=== PATIENT | male | born 1945 | race Caucasian/White ===

== ENCOUNTER 2019-07-11 17:12 | Emergency (ER) | payer MEDICARE, OTHER ==
--- NOTE | 2019-07-11 17:44 | ED Physician Documentation ---
PD HPI DYSPNEA - Stated complaint Stated Complaint: DIFFICULTY BREATHING - CHEMO PT - XRAY - Chief complaint Chief Complaint: Resp - History obtained from History obtained from: Patient - History of Present Illness Pain level now: 0 Improved by: No: O2 Worsened by: Coughing Associated symptoms: Fever (99+), Cough. No: Hemoptysis, Chest pain / discomfort, Palpitations, Bilateral edema Recently seen: Clinic - Additional information Additional information: This is a 73-year-old man who has an aggressive type of bladder cancer and received a heavy dose of chemotherapy on 02 July who presents today with complaints of an "aggressive cough" that so vigorous is hurting in the back of his throat and in his lower back. He just brings up clear phlegm which he swallows. He does feel short of breath with exertion but denies any chest pain. He is not felt dizzy. He is been a little nauseous but he has medications at home for that he has not been vomiting. He had a slight runny nose. He had his flu shot a week before receiving the chemotherapy. Denies any dysuria or blood in the urine. 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 His oncologist had called me prior to his arrival requesting a CBC and chest x-ray. Review of Systems Constitutional: reports: Fever (99+) Ears: denies: Ear pain Nose: reports: Rhinorrhea / runny nose. denies: Congestion Throat: denies: Sore throat Cardiac: denies: Chest pain / pressure, Palpitations, Pedal edema Respiratory: reports: Dyspnea, Cough. denies: Hemoptysis, Wheezing GI: reports: Nausea. denies: Vomiting : denies: Dysuria, Hematuria Musculoskeletal: reports: Back pain Neurologic: denies: Generalized weakness, Syncope Immunocompromised: reports: Immunocompromised PD PAST MEDICAL HISTORY - Present Medications Home Medications: Ambulatory Orders Medication Instructions Recorded Confirmed Aspirin 81 mg PO DAILY 07/11/19 07/11/19 Cholecalciferol (Vitamin D3) 1,000 unit PO DAILY 07/11/19 07/11/19 [Vitamin D3] Lisinopril 20 mg PO DAILY 07/11/19 07/11/19 Loratadine 10 mg PO DAILY 07/11/19 07/11/19 Simvastatin 20 mg PO DAILY 07/11/19 07/11/19 Tamsulosin HCl [Flomax] 0.4 mg PO DAILY 07/11/19 07/11/19 amLODIPine [Norvasc] 5 mg PO DAILY 07/11/19 07/11/19 guaiFENesin/CODEINE [Robitussin AC] 5 - 10 ml PO Q8H #90 ml 07/11/19 metFORMIN [Glucophage] 500 mg PO ONCE 07/11/19 07/11/19 - Allergies Allergies/Adverse Reactions: Allergies Allergy/AdvReac Type Severity Reaction Status Date / Time bacitracin AdvReac Rash Verified 07/11/19 17:19 [From Neosporin ([id number])] neomycin AdvReac Rash Verified 07/11/19 17:19 [From Neosporin ([id number])] polymyxin B AdvReac Rash Verified 07/11/19 17:19 [From Neosporin ([id number])] PD ED PE NORMAL - Vitals Vital signs reviewed: Yes - General General: Alert and oriented X 3, No acute distress, Well developed/nourished - HEENT HEENT: Atraumatic, PERRL, EOMI, Moist mucous membranes, Pharynx benign - Neck Neck: Supple, no meningeal sign, No adenopathy - Cardiac Cardiac: RRR, No murmur, Strong equal pulses - Respiratory Respiratory: No respiratory distress, Clear bilaterally - Abdomen Abdomen: Normal bowel sounds - Back Back: No CVA TTP - Derm Derm: Normal color, Warm and dry, No rash - Extremities Extremities: No deformity, No edema - Neuro Neuro: Alert and oriented X 3, 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, No motor deficit, No sensory deficit, Normal speech - Psych Psych: Normal mood, Normal affect Results - Vitals Vitals: Oxygen O2 Source Room air - Labs Labs: Laboratory Tests 07/11/19 18:20 WBC 4.6 L RBC 3.82 L Hgb 12.5 L Hct 38.0 L MCV 99.5 H MCH 32.7 H MCHC 32.9 RDW 11.9 L Plt Count 116 L MPV 10.8 Neut # (Auto) Not Reportable Lymph # (Auto) Not Reportable [place] # (Auto) Not Reportable Eos # (Auto) Not Reportable Baso # (Auto) Not Reportable Absolute Nucleated RBC Not Reportable Total Counted 100 Band Neuts % (Manual) 16 H Abnorm Lymph % (Manual) 0 Nucleated RBC % Not Reportable Neutrophils # (Manual) 2.2 Lymphocytes # (Manual) 1.7 Monocytes # (Manual) 0.6 Eosinophils # (Manual) 0.1 Basophils # (Manual) 0.0 Differential Comment MANUAL DIFFERENTIAL WBC Morphology 2+ TOXIC GRANULATION Platelet Estimate DECREASED (<130,000) Platelet Morphology NORMAL APPEARANCE RBC Morph Micro Appear NORMAL APPEARANCE - Rads (name of study) CXR Radiology: EMP read contemporaneously, See rad report (Neg acute) PD MEDICAL DECISION MAKING - ED course Complexity details: reviewed results, re-evaluated patient, d/w patient, d/w family ED course: The chest x-ray is clear. His white blood cell count was up to 4.6. The differential is still pending and I discussed with him he preferred to be discharged and have that followed up through his oncologist. He was pleased with white blood cell count was higher. He was given a dose of Phenergan with codeine and will be given a prescription for that. He can contact his o ncologist for follow-up tomorrow. Departure - Departure Disposition: 01 Home, Self Care Clinical Impression: Cough Condition: Good Instructions: ED Dyspnea Shortness of Breath Follow-Up: ALLAN URIOSTEGUI MD [Primary Care Provider] - Prescriptions: guaiFENesin/CODEINE [Robitussin AC] 5 - 10 ml PO Q8H #90 ml Comments: May take the codeine cough medicine if needed for coughing. Do not drive or operate machinery if you take that. Follow-up with Dr. Uriostegui tomorrow about your lab tests and the cough. There is no evidence of a lung infection at this time. Discharge Date/Time: 07/11/19 19:52
--- NOTE | 2019-07-11 18:23 | XRAY Report ---
Reason: cough Procedure Date: 07/11/2019 Accession Number: [id number] / [id number] Procedure: XR - Chest 2 View X-Ray CPT Code: 93459 FULL RESULT: EXAM: CHEST RADIOGRAPHY EXAM DATE: 07/11/2019 05:57 PM. CLINICAL HISTORY: Cough. COMPARISON: None. TECHNIQUE: 2 views. FINDINGS: Lungs/Pleura: No focal opacities evident. No pleural effusion. No pneumothorax. Normal volumes. Mediastinum: Heart and mediastinal contours are unremarkable. Other: Right sided [id number] is seen terminating in the mid to lower SVC region. IMPRESSION: No acute cardiopulmonary abnormality demonstrated. RADIA
[2019-07-11 18:43] LABS: BASOPHILS % (AUTO) 0.4 %; EOSINOPHILS % (AUTO) 2.6 %; HGB - HEMOGLOBIN 12.5 g/dL (14.0-18.0); LYMPHOCYTES % (AUTO) 28.9 %; MEAN CORPUSCULAR HEMOGLOBIN 32.7 pg (27.0-31.0); MEAN CORPUSCULAR HGB CONC 32.9 g/dL (32.0-36.0); MEAN CORPUSCULAR VOLUME 99.5 fL (80.0-94.0); MEAN PLATELET VOLUME 10.8 fL (7.4-11.4); MONOCYTES % (AUTO) 14.1 %; NEUTROPHILS % (AUTO) 49.7 %; PLT - PLATELET COUNT 116 10^3/uL (130-450); RED BLOOD COUNT 3.82 10^6/uL (4.70-6.10); RED CELL DISTRIBUTION WIDTH 11.9 % (12.0-15.0); WHITE BLOOD COUNT 4.6 x10^3/uL (4.8-10.8)
[2019-07-11 18:48] LABS: ABNORMAL LYMPHS % (MANUAL) 0 %
[2019-07-11] MEDS ORDERED: guaiFENesin/CODEINE 5 ML UDC PO STA (19:33)
[2019-07-11 19:44] LABS: BAND NEUTROPHILS % (MANUAL) 16 %; EOSINOPHILS # (MANUAL) 0.1 10^3/uL (0-0.7); LYMPHOCYTES # (MANUAL) 1.7 10^3/uL (1.5-3.5); LYMPHOCYTES % (MANUAL) 36 %; MONOCYTES # (MANUAL) 0.6 10^3/uL (0.0-1.0)
[2019-07-11 19:46] LABS: DIFFERENTIAL COMMENT MANUAL DIFFERENTIAL; PLATELET ESTIMATE, MANUAL DECREASED (<130,000) (NORMAL); PLATELET MORPHOLOGY NORMAL APPEARANCE (NORMAL); RBC MORPHOLOGY (MULTIPLE) NORMAL APPEARANCE (NORMAL)
[2019-07-11 19:50] VITALS: BP 138/80
== END 2019-07-11 19:52 | disposition home or self-care (01) ==
LOC: ED 17:12
DX: R05 Cough (principal)
CPT/HCPCS: 36415; 71046; 85025; 99283; 99284; A9270

== ENCOUNTER 2019-07-23 17:35 | Inpatient (IN) | payer MEDICARE, OTHER ==
[2019-07-23 18:53] LABS: BASOPHILS % (AUTO) 2.5 %; EOSINOPHILS % (AUTO) 1.3 %; HGB - HEMOGLOBIN 11.7 g/dL (14.0-18.0); LYMPHOCYTES % (AUTO) 79.7 %; MEAN CORPUSCULAR HGB CONC 33.2 g/dL (32.0-36.0); MEAN CORPUSCULAR VOLUME 96.2 fL (80.0-94.0); MEAN PLATELET VOLUME 9.8 fL (7.4-11.4); MONOCYTES % (AUTO) 10.1 %; NEUTROPHILS % (AUTO) 5.1 %; PLT - PLATELET COUNT 167 10^3/uL (130-450); RED BLOOD COUNT 3.66 10^6/uL (4.70-6.10); RED CELL DISTRIBUTION WIDTH 12.4 % (12.0-15.0)
[2019-07-23 19:00] LABS: WHITE BLOOD COUNT 0.8 x10^3/uL (4.8-10.8)
[2019-07-23 19:01] LABS: ABNORMAL LYMPHS % (MANUAL) 0 %; BAND NEUTROPHILS % (MANUAL) 0 %
[2019-07-23 19:02] LABS: ALBUMIN 3.6 g/dL (3.2-5.5); ALBUMIN/GLOBULIN RATIO 1.2 (1.0-2.2); BILIRUBIN,TOTAL 0.6 mg/dL (0.2-1.0); CALCIUM 8.9 mg/dL (8.5-10.3); TOTAL PROTEIN 6.6 g/dL (6.7-8.2)
[2019-07-23 19:24] LABS: LYMPHOCYTES # (MANUAL) 0.7 10^3/uL (1.5-3.5); LYMPHOCYTES % (MANUAL) 84 %; MONOCYTES # (MANUAL) 0.1 10^3/uL (0.0-1.0)
[2019-07-23 19:27] LABS: DIFFERENTIAL COMMENT MANUAL DIFFERENTIAL; PLATELET ESTIMATE, MANUAL NORMAL (130-450,000) (NORMAL); PLATELET MORPHOLOGY NORMAL APPEARANCE (NORMAL); RBC MORPHOLOGY (MULTIPLE) NORMAL APPEARANCE (NORMAL)
--- NOTE | 2019-07-23 19:43 | XRAY Report ---
Reason: cough Procedure Date: 07/23/2019 Accession Number: [id number] / [id number] Procedure: XR - Chest 2 View X-Ray CPT Code: 05106 Final Report FULL RESULT: EXAM: CHEST RADIOGRAPHY EXAM DATE: 07/23/2019 07:16 PM. CLINICAL HISTORY: Cough. COMPARISON: CHEST 2 VIEW 07/11/2019 5:54 PM. TECHNIQUE: 2 views. FINDINGS: Lungs/Pleura: Mild right lung base airspace opacity. Left lung clear. No pneumothorax or effusion. Mediastinum: Heart and mediastinal contours are unremarkable. Other: Stable right Port-A-Cath. IMPRESSION: Mild right lung base opacity, favor atelectasis but early pneumonia/aspiration not excluded in the proper clinical setting. RADIA
[2019-07-23 19:48] LABS: BILIRUBIN,URINE NEGATIVE (NEGATIVE); GLUCOSE, URINE (UA) NEGATIVE (NEGATIVE); KETONES,URINE (UA) NEGATIVE (NEGATIVE); LEUKOCYTE ESTERASE, URINE NEGATIVE (NEGATIVE); NITRITE,URINE NEGATIVE (NEGATIVE); OCCULT BLOOD,URINE NEGATIVE (NEGATIVE); PROTEIN,URINE TRACE mg/dL (NEGATIVE); UROBILINOGEN,URINE 0.2 (NORMAL) E.U./dL (NORMAL)
[2019-07-23 19:56] LABS: CLARITY,URINE CLEAR (CLEAR)
--- NOTE | 2019-07-23 20:03 | ED Physician Documentation ---
PD HPI URI - Stated complaint Stated Complaint: HIGH FEVER - CA PT - Chief complaint Chief Complaint: General - History obtained from History obtained from: Patient - History of Present Illness Timing - onset: How many days ago (2-3) Timing duration: Days Timing details: Abrupt onset, Still present. No: Gradual onset Associated symptoms: Fever (subjective last night and measured to 100.5 this morning. Feeling feverish fro 1-2 days.), Nasal congestion, Dry cough, Dyspnea. No: Chest pain, NVD, Bilateral edema Contributing factors: Sick contact (grandson with some URI symtpoms.), Immunocompromised (chemo 1 week ago for bladder cancer) Improves by: No: Rest Worsened by: Activity Similar symptoms before: Has not had sx before Recently seen: Clinic (chemo 1 week ago and 2 weeks prior to that, with fatigue from it.) Review of Systems Constitutional: reports: Fever, Myalgias, Fatigue Nose: reports: Congestion. denies: Rhinorrhea / runny nose Throat: denies: Sore throat Cardiac: denies: Chest pain / pressure, Palpitations, Calf pain Respiratory: reports: Dyspnea, Cough. denies: Wheezing GI: reports: Nausea, Vomiting. denies: Diarrhea, Hematemesis : denies: Dysuria, Frequency Musculoskeletal: denies: Neck pain, Back pain Neurologic: reports: Generalized weakness. denies: Near syncope, Confused, Altered mental status, Headache Psychiatric: denies: Depressed Immunocompromised: reports: Immunocompromised, Chemotherapy PD PAST MEDICAL HISTORY - Past Medical History Cardiovascular: Hypertension, High cholesterol Endocrine/Autoimmune: Type 2 diabetes : Benign prostate hypertrophy - Past Surgical History Past Surgical History: Yes - Present Medications Home Medications: Ambulatory Orders Medication Instructions Recorded Confirmed Aspirin 81 mg PO DAILY 07/11/19 07/11/19 Cholecalciferol (Vitamin D3) 1,000 unit PO DAILY 07/11/19 07/11/19 [Vitamin D3] Lisinopril 20 mg PO DAILY 07/11/19 07/11/19 Loratadine 10 mg PO DAILY 07/11/19 07/11/19 Simvastatin 20 mg PO DAILY 07/11/19 07/11/19 Tamsulosin HCl [Flomax] 0.4 mg PO DAILY 07/11/19 07/11/19 amLODIPine [Norvasc] 5 mg PO DAILY 07/11/19 07/11/19 guaiFENesin/CODEINE [Robitussin AC] 5 - 10 ml PO Q8H #90 ml 07/11/19 metFORMIN [Glucophage] 500 mg PO ONCE 07/11/19 07/11/19 - Allergies Allergies/Adverse Reactions: Allergies Allergy/AdvReac Type Severity Reaction Status Date / Time bacitracin AdvReac Rash Verified 07/23/19 17:50 [From Neosporin ([id number])] neomycin AdvReac Rash Verified 07/23/19 17:50 [From Neosporin ([id number])] polymyxin B AdvReac Rash Verified 07/23/19 17:50 [From Neosporin ([id number])] - Social History Does the pt smoke?: No Smoking Status: Never smoker PD ED PE NORMAL - Vitals Vital signs reviewed: Yes - General General: Alert and oriented X 3, Well developed/nourished - HEENT HEENT: Pharynx benign - Neck Neck: Supple, no meningeal sign, No adenopathy, No JVD - Cardiac Cardiac: RRR, No murmur - Respiratory Respiratory: No: Clear bilaterally (congested hilar area and right lower lung field. Slight wheezing. ) - Abdomen Abdomen: Soft, Non tender - Back Back: No CVA TTP - Derm Derm: Warm and dry. No: Normal color (pale) - Extremities Extremities: Normal ROM s pain, No edema, No calf tenderness / cord - Neuro Neuro: Alert and oriented X 3, No motor deficit, Normal speech Results - Vitals Vitals: Vital Signs - 24 hr 07/23/19 07/23/19 07/23/19 17:47 19:51 20:48 Temperature 37.0 C 37.3 C Heart Rate 90 96 100 Respiratory 18 17 15 Rate Blood Pressure 156/83 H 168/91 H 145/83 H O2 Saturation 97 98 98 07/23/19 20:55 Temperature Heart Rate 96 Respiratory 18 Rate Blood Pressure O2 Saturation Oxygen O2 Source Room air - Labs Labs: Laboratory Tests 07/23/19 07/23/19 07/23/19 18:40 18:40 18:40 WBC 0.8 L* RBC 3.66 L Hgb 11.7 L Hct 35.2 L MCV 96.2 H MCH 32.0 H MCHC 33.2 RDW 12.4 Plt Count 167 MPV 9.8 Neut # (Auto) Not Reportable Lymph # (Auto) Not Reportable [place] # (Auto) Not Reportable Eos # (Auto) Not Reportable Baso # (Auto) Not Reportable Absolute Nucleated RBC Not Reportable Total Counted 50 Band Neuts % (Manual) 0 Reactive Lymphs % (Man) 2 Abnorm Lymph % (Manual) 0 Nucleated RBC % Not Reportable Neutrophils # (Manual) 0.0 L* Lymphocytes # (Manual) 0.7 L Monocytes # (Manual) 0.1 Eosinophils # (Manual) 0.0 Basophils # (Manual) 0.0 Differential Comment MANUAL DIFFERENTIAL Manual Slide Review Indicated Platelet Estimate NORMAL (130-450,000) Platelet Morphology NORMAL APPEARANCE RBC Morph Micro Appear NORMAL APPEARANCE Sodium 137 Potassium 4.1 Chloride 102 Carbon Dioxide 26 Anion Gap 9.0 BUN 17 Creatinine 1.0 Estimated GFR (MDRD) 73 L Glucose 116 H Lactic Acid 0.9 Calcium 8.9 Magnesium Total Bilirubin 0.6 AST 25 ALT 49 Alkaline Phosphatase 74 Total Protein 6.6 L Albumin 3.6 Globulin 3.0 Albumin/Globulin Ratio 1.2 Lipase 21 L Urine Color Urine Clarity Urine pH Ur Specific [place] Urine Protein Urine Glucose (UA) Urine Ketones Urine Occult Blood Urine Nitrite Urine Bilirubin Urine Urobilinogen Ur Leukocyte Esterase Ur Microscopic Review Urine Culture Comments Influenza A (Rapid) Influenza B (Rapid) 07/23/19 07/23/19 07/23/19 18:40 19:43 19:49 WBC RBC Hgb Hct MCV MCH MCHC RDW Plt Count MPV Neut # (Auto) Lymph # (Auto) [place] # (Auto) Eos # (Auto) Baso # (Auto) Absolute Nucleated RBC Total Counted Band Neuts % (Manual) Reactive Lymphs % (Man) Abnorm Lymph % (Manual) Nucleated RBC % Neutrophils # (Manual) Lymphocytes # (Manual) Monocytes # (Manual) Eosinophils # (Manual) Basophils # (Manual) Differential Comment Manual Slide Review Platelet Estimate Platelet Morphology RBC Morph Micro Appear Sodium Potassium Chloride Carbon Dioxide Anion Gap BUN Creatinine Estimated GFR (MDRD) Glucose Lactic Acid Calcium Magnesium 2.5 Total Bilirubin AST ALT Alkaline Phosphatase Total Protein Albumin Globulin Albumin/Globulin Ratio Lipase Urine Color YELLOW Urine Clarity CLEAR Urine pH 6.0 Ur Specific [place] 1.010 Urine Protein TRACE Urine Glucose (UA) NEGATIVE Urine Ketones NEGATIVE Urine Occult Blood NEGATIVE Urine Nitrite NEGATIVE Urine Bilirubin NEGATIVE Urine Urobilinogen 0.2 (NORMAL) Ur Leukocyte Esterase NEGATIVE Ur Microscopic Review NOT INDICATED Urine Culture Comments NOT INDICATED Influenza A (Rapid) Negative Influenza B (Rapid) Negative - Rads (name of study) chest xray Radiology: Prelim report reviewed (patchy right lower c/w atelectasis versus early infiltrate pneumonia), See rad report PD MEDICAL DECISION MAKING - ED course Complexity details: reviewed results, re-evaluated patient, considered differential (PNeumonia versus flu versus URI. In setting of post chemo with concern of low functioning immune system), d/w patient, d/w family, d/w residential sales consultant (Oncology salesperson surgical appliances, who suggested some granulocyte stimulating hormone therapy. As well as hospitalization and treatment for pneumonia. ) Departure - Departure Disposition: 66 [facility] DC/Xfer Clinical Impression: Chemotherapy induced neutropenia, Acute pneumonia Bladder cancer Qualifiers: Bladder location: unspecified site Qualified Code(s): C67.9 - Malignant neoplasm of bladder, unspecified Condition: Stable Record reviewed to determine appropriate education?: Yes Discharge Date/Time: 07/23/19 23:02
[2019-07-23] MEDS ORDERED: SODIUM CHLORIDE 0.9% 1,000 ML IV ONE (20:32)
[2019-07-23] MEDS ORDERED: ALBUTEROL NEB 2.5 MG/3 ML INH STA (20:32)
[2019-07-23] MEDS ORDERED: CEFEPIME 2 GM in SODIUM CHLORIDE 0.9% MINIBAG 100 ML IV STA (20:33)
[2019-07-23] MEDS ORDERED: AZITHROMYCIN INJ 500 MG in SODIUM CHLORIDE 0.9% 250 ML IV STA (20:33)
[2019-07-23] MEDS ORDERED: FILGRASTIM-SNDZ 480 MCG/0.8 ML SYRINGE SUBQ SCH (21:50)
[2019-07-23] MEDS ORDERED: ACETAMINOPHEN 325 MG TABLET PO PRN (21:56)
--- NOTE | 2019-07-23 22:21 | HISTORY & PHYSICAL EXAMINATION ---
Chief Complaint - Chief Complaint Chief Complaint: cough History of Present Illness - Admitted From Admitted From:: [facility] ED - History Obtained From Records Reviewed: yes History obtained from: patient - History of Present Illness HPI Comment/Other: Patient is a 73 y/o man with an aggressive bladder cancer diagnosed 3 years ago who presented to the ED with complain of cough which started yesterday. He had presented to the ED on 07/11/19 with similar complain. He received chemotherapy on 07/02/19 and again last week. Upon presentation he had a temperature of 100.5F. Work up in the ED included CBC which showed a WBC of 0.8 and a neutro erin count of 0.0. Chest xray was also concerning for possible infiltrates. As a result he was presented for admission At bedside patient was asleep but readily awoke to verbal stimuli. He has a very flat affect. He denied feeling dyspneic at the moment. Reports chest pain with coughing. He reported nausea but no vomiting. he denied abdominal pain. 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 liver cancer. brother: . lung cancer (smoked) Social History Notes: lives at home with family. He occassionally drinks a beer. He does not smoke or use illicit drugs - POLST Patient has POLST: No POLST Status: Limited Interventions (Resuscitation but no intubation) Meds/Allgy - Home Medications Home Medications: Ambulatory Orders Medication Instructions Recorded Confirmed Aspirin 81 mg PO DAILY 07/11/19 07/11/19 Cholecalciferol (Vitamin D3) 1,000 unit PO DAILY 07/11/19 07/11/19 [Vitamin D3] Lisinopril 20 mg PO DAILY 07/11/19 07/11/19 Loratadine 10 mg PO DAILY 07/11/19 07/11/19 Simvastatin 20 mg PO DAILY 07/11/19 07/11/19 Tamsulosin HCl [Flomax] 0.4 mg PO DAILY 07/11/19 07/11/19 amLODIPine [Norvasc] 5 mg PO DAILY 07/11/19 07/11/19 guaiFENesin/CODEINE [Robitussin AC] 5 - 10 ml PO Q8H #90 ml 07/11/19 metFORMIN [Glucophage] 500 mg PO ONCE 07/11/19 07/11/19 - Allergies Allergies/Adverse Reactions: Allergies Allergy/AdvReac Type Severity Reaction Status Date / Time bacitracin AdvReac Rash Verified 07/23/19 17:50 [From Neosporin ([id number])] neomycin AdvReac Rash Verified 07/23/19 17:50 [From Neosporin ([id number])] polymyxin B AdvReac Rash Verified 07/23/19 17:50 [From Neosporin ([id number])] Review of Systems - Constitutional Constitutional: reports: Fatigue, Fever, Weakness, Other (hair loss/ thinning) - Eyes Eyes: denies: Pain, Dipolpia - Ears, Nose & Throat Ears, Nose & Throat: denies: Ear pain, Sore throat - Cardiovascular Cariovascular: reports: Exertional dyspnea. denies: Chest pain, Decr. exercise tolerance - Respiratory Respiratory: reports: Cough. denies: Sputum production, Wheezing - Gastrointestinal Gastrointestinal: reports: Nausea. denies: Abdominal pain, Abdominal distention, Constipation, Diarrhea, Vomiting, Coffee grounds emesis, Reflux/ heartburn - Genitourinary Genitourinary: denies: Dysuria, Frequency, Urgency, Hematuria - Musculoskeletal Musculoskeletal: denies: Muscle pain, Back pain, Muscle aches, Stiffness - Integumentary Integumentary: denies: Rash, Pruritis, Lesions - Neurological Neurological: denies: General weakness, Focal weakness, Headache - Psychiatric Psychiatric: denies: Depression, Anxiety - Endocrine Endocrine: denies: Polyuria, Polydypsia - Hematologic/Lymphatic Hematologic/Lymphatic: denies: Anemia, Bruising Prior Level of Functionality: Patient is independent of activities of daily living Exam - Vital Signs Vital Signs: Vital Signs x48h Temp Pulse Resp BP Pulse Ox 07/23/19 21:56 36.8 C 102 H 16 153/78 H 95 07/23/19 20:55 96 18 07/23/19 20:48 100 15 145/83 H 98 07/23/19 19:51 37.3 C 96 17 168/91 H 98 07/23/19 17:47 37.0 C 90 18 156/83 H 97 - Physical Exam General Appearance: positive: Alert, Moderate distress Eyes Bilateral: positive: Normal inspection, PERRL, EOMI ENT: positive: ENT inspection nml, Dry mucous membranes Neck: positive: Nml inspection, No JVD, Trachea midline Respiratory: positive: Chest non-tender, Rhonchi (greater on right side), Other (coarse breath sounds.). negative: No respiratory distress, Breath sounds nml Cardiovascular: positive: Tachycardia Abdomen: positive: Non-tender, No organomegaly, Nml bowel sounds, No distention. negative: Guarding, Rebound Back: positive: Nml inspection Skin: positive: Color nml, No rash, Warm Extremities: positive: Non-tender, Nml appearance, No pedal edema Neurologic/Psychiatric: positive: Oriented x3, Other (flat affect) Conclusion/Plan - Problem List (1) Chemotherapy induced neutropenia Conclusion/Plan: The oncologist contract engineer for his oncologist team was contact Dr Bill ([phone]) He recommended starting patient on filgrastim 480mcg subq daily. This has been started Patient can be discharged home on oral antibiotics after neutrophil count is greater than 1500 Patient currently on cefepime and azithromycin. (2) Acute pneumonia Conclusion/Plan: Patient on cefepime and azithromycin Blood cultures pending (3) Bladder cancer Conclusion/Plan: On chemotherapy. Patient will follow up with his oncologist Qualifiers: Bladder location: unspecified site Qualified Code(s): C67.9 - Malignant neoplasm of bladder, unspecified (4) Hypertension Conclusion/Plan: Lisinopril and amlodipine will be resumed after they have been verified (5) Diabetes mellitus Conclusion/Plan: Will hold metformin SSI, Accuchecks Qualifiers: Diabetes mellitus type: type 2 (6) Hyperlipidemia Conclusion/Plan: On simvastatin Will converted to formulary equivalent once verified - Lab Results Fish Bones: 07/23/19 18:40 07/23/19 18:40 Core Measures - Anticipated LOS I expect patient to be DC'd or transferred within 96 hours.: Yes - DVT/VTE - Prophylaxis VTE/DVT Device ordered at admit?: Yes
[2019-07-24] MEDS: SODIUM CHLORIDE FLUSH 0.9% 10 ML SYRINGE IVP SCH ×3 (00:43→17:57)
[2019-07-24] MEDS: SODIUM CHLORIDE 0.9% 1,000 ML IV SCH ×3 (00:43→21:20)
[2019-07-24] MEDS: CEFEPIME 2 GM in SODIUM CHLORIDE 0.9% MINIBAG 100 ML IV SCH ×3 (04:41→21:20)
[2019-07-24] MEDS: BENZOCAINE/MENTHOL LOZENGE MM PRN ×2 (06:25→21:18)
[2019-07-24] MEDS: PANTOPRAZOLE 40 MG VIAL IVP SCH (06:26)
[2019-07-24] MEDS: SODIUM CHLORIDE FLUSH 0.9% 10 ML SYRINGE IVP PRN (06:26)
[2019-07-24 06:50] LABS: BASOPHILS % (AUTO) 3.2 %; EOSINOPHILS % (AUTO) 1.6 %; HGB - HEMOGLOBIN 10.3 g/dL (14.0-18.0); LYMPHOCYTES % (AUTO) 71.4 %; MEAN CORPUSCULAR HEMOGLOBIN 32.6 pg (27.0-31.0); MEAN CORPUSCULAR HGB CONC 33.2 g/dL (32.0-36.0); MEAN CORPUSCULAR VOLUME 98.1 fL (80.0-94.0); MEAN PLATELET VOLUME 10.1 fL (7.4-11.4); MONOCYTES % (AUTO) 14.3 %; NEUTROPHILS % (AUTO) 9.5 %; PLT - PLATELET COUNT 149 10^3/uL (130-450); RED BLOOD COUNT 3.16 10^6/uL (4.70-6.10); RED CELL DISTRIBUTION WIDTH 12.4 % (12.0-15.0)
[2019-07-24 06:55] LABS: CALCIUM 7.9 mg/dL (8.5-10.3); CREATININE 1.1 mg/dL (0.6-1.2)
[2019-07-24 06:56] LABS: WHITE BLOOD COUNT 0.6 x10^3/uL (4.8-10.8)
[2019-07-24 06:57] LABS: ABNORMAL LYMPHS % (MANUAL) 0 %; BAND NEUTROPHILS % (MANUAL) 0 %
[2019-07-24 07:26] LABS: BASOPHILS % (MANUAL) 4 %; LYMPHOCYTES # (MANUAL) 0.5 10^3/uL (1.5-3.5); LYMPHOCYTES % (MANUAL) 79 %; MONOCYTES # (MANUAL) 0.1 10^3/uL (0.0-1.0)
[2019-07-24 07:27] LABS: DIFFERENTIAL COMMENT MANUAL DIFFERENTIAL; PLATELET ESTIMATE, MANUAL NORMAL (130-450,000) (NORMAL); PLATELET MORPHOLOGY NORMAL APPEARANCE (NORMAL); RBC MORPHOLOGY (MULTIPLE) NORMAL APPEARANCE (NORMAL)
[2019-07-24] MEDS: INSULIN ASPART 300 UNIT/3 ML PEN SUBQ SCH ×4 (08:21→20:47)
[2019-07-24] MEDS: ONDANSETRON 4 MG/2 ML VIAL IVP PRN (08:30)
[2019-07-24] MEDS: FILGRASTIM-SNDZ 480 MCG/0.8 ML SYRINGE SUBQ SCH (08:55)
[2019-07-24 10:03] LABS: HB2 TOTAL 10.3 g/dL; HEMOGLOBIN A1C 0.52 g/dL; HEMOGLOBIN A1C % 6.8 % (4.6-6.2)
--- NOTE | 2019-07-24 12:51 | PROVIDER PROGRESS NOTE ---
Assessment/Plan - Problem List (1) Chemotherapy induced neutropenia Assessment/Plan: ANC still negligible Continue med recommended by Oncoloist Follow CBC daily (2) Chemotherapy-induced nausea and vomiting Assessment/Plan: He said he is "usually nauseated every day in the week between chemo weeks" (He got chemo all of last week). I will downgrade his diet from Regular solids to Full Liquid Will add Compazine to Zofran and stagger them. He was started on empiric ulcer prevention with Protonix (3) Acute pneumonia Assessment/Plan: Continue iv antibiotics Await culture results to adjust (4) Bladder cancer Qualifiers: Bladder location: unspecified site Qualified Code(s): C67.9 - Malignant neoplasm of bladder, unspecified Assessment/Plan: Chemo therapy is planned for 6 sessions every other week for a week at a time, p er the patient's girlfriend (5) DM type 2 (diabetes mellitus, type 2) Assessment/Plan: CC diet and accuchecks with ss Insulin planned while here (6) Hypertension Assessment/Plan: Will slowly resume home meds if BP rises (7) Hyperlipidemia Assessment/Plan: Simvastatin on hold while nauseated - Current Meds Current Meds: Current Medications Generic Name Dose Route Start Last Admin Trade Name Freq PRN Reason Stop Dose Admin Filgrastim 480 mcg 07/24/19 09:00 07/24/19 08:55 Zarxio SUBQ 480 mcg DAILY QUINTEN Administration Sodium Chloride 1,000 mls @ 100 mls/hr 07/23/19 22:00 07/24/19 10:36 Normal Saline 0.9% IV 100 mls/hr .Q10H QUINTEN Administration Cefepime HCl 2 gm/ Sodium 100 mls @ 200 mls/hr 07/24/19 05:00 07/24/19 05:15 Chloride IV Infused Q8H QUINTEN Infusion Insulin Aspart 1 - 5 unit 07/24/19 08:00 07/24/19 12:19 Novolog SUBQ Not Given 0800,1200,1700,2100 QUINTEN Protocol Ondansetron HCl 4 mg 07/23/19 21:56 07/24/19 08:30 Zofran Inj IVP 4 mg Q6HR PRN Administration Nausea / Vomiting Pantoprazole Sodium 40 mg 07/24/19 07:00 07/24/19 06:26 Protonix IVP 40 mg QDAC QUINTEN Administration Sodium Chloride 10 ml 07/24/19 01:00 07/24/19 10:35 Normal Saline Flush 0.9% IVP Not Given 0100,0900,1700 QUINTEN Sodium Chloride 20 ml 07/24/19 04:45 07/24/19 06:26 Normal Saline Flush 0.9% IVP 30 ml PRN PRN Administration After Blood Draw Throat Lozenges 1 lozenge 07/24/19 04:45 07/24/19 06:25 Cepacol MM 1 lozenge Q2HR PRN Administration Throat pain - Lab Result Fish Bone Diagrams: 07/27/19 06:12 07/27/19 06:12 - Additional Planning My Orders: My Active Orders 07/24/19 CUL, RESPIRATORY [RM] Urgent 07/24/19 12:48 Prochlorperazine Inj [Compazine Inj] 10 mg IVP Q4HR PRN 07/24/19 21:00 guaiFENesin [Mucinex] 600 mg PO BID 07/24/19 Dinner DIET [Full Liquid Diet] [DIET] Subjective - Subjective Patient Reports: Resting Comfortably, Nausea Nursing Reports: Cough Objective Vital Signs: Vital Signs - 24 hr 07/23/19 07/23/19 07/23/19 17:47 19:51 20:48 Temperature 37.0 C 37.3 C Heart Rate 90 96 100 Heart Rate [ Brachial] Respiratory 18 17 15 Rate Blood Pressure 156/83 H 168/91 H 145/83 H Blood Pressure [Left] Blood Pressure [Right Brachial artery] O2 Saturation 97 98 98 07/23/19 07/23/19 07/23/19 20:55 21:56 23:30 Temperature 36.8 C 36.7 C Heart Rate 96 102 H Heart Rate [ 98 Brachial] Respiratory 18 16 16 Rate Blood Pressure 153/78 H Blood Pressure [Left] Blood Pressure 150/88 H [Right Brachial artery] O2 Saturation 95 97 07/24/19 07/24/19 07/24/19 00:10 04:25 07:35 Temperature 36.7 C 37.2 C 37.3 C Heart Rate 98 Heart Rate [ 93 90 Brachial] Respiratory 16 18 24 Rate Blood Pressure Blood Pressure 159/86 H [Left] Blood Pressure 156/84 H [Right Brachial artery] O2 Saturation 97 94 94 Oxygen O2 Source Room air I&O (Last 24 Hrs): Intake and Output Totals x24h 07/22/19 07/23/19 07/24/19 23:59 23:59 23:59 Intake Total 1350 1436.667 Output Total 275 Balance 1350 1161.667 General: Alert, Oriented x3 HEENT: Mucous membr. moist/pink Neck: Supple Neuro: Non Focal Cardiovascular: Regular rate, No murmurs Respiratory: No respiratory distress, Other (L base diminised, no rales or wheezing) Abdomen: Normal bowel sounds, Soft Extremities: No edema - Results Results: Laboratory Results WBC 0.6 x10^3/uL (4.8-10.8) L* 07/24/19 06:15 RBC 3.16 10^6/uL (4.70-6.10) L 07/24/19 06:15 Hgb 10.3 g/dL (14.0-18.0) L 07/24/19 06:15 Hct 31.0 % (42.0-52.0) L 07/24/19 06:15 MCV 98.1 fL (80.0-94.0) H 07/24/19 06:15 MCH 32.6 pg (27.0-31.0) H 07/24/19 06:15 MCHC 33.2 g/dL (32.0-36.0) 07/24/19 06:15 RDW 12.4 % (12.0-15.0) 07/24/19 06:15 Plt Count 149 10^3/uL (130-450) 07/24/19 06:15 MPV 10.1 fL (7.4-11.4) 07/24/19 06:15 Neut # (Auto) Not Reportable 07/24/19 06:15 Lymph # (Auto) Not Reportable 07/24/19 06:15 [place] # (Auto) Not Reportable 07/24/19 06:15 Eos # (Auto) Not Reportable 07/24/19 06:15 Baso # (Auto) Not Reportable 07/24/19 06:15 Absolute Nucleated RBC Not Reportable 07/24/19 06:15 Total Counted 100 07/24/19 06:15 Band Neuts % (Manual) 0 % (0-10) 07/24/19 06:15 Reactive Lymphs % (Man) 2 % 07/23/19 18:40 Abnorm Lymph % (Manual) 0 % 07/24/19 06:15 Nucleated RBC % Not Reportable 07/24/19 06:15 Neutrophils # (Manual) 0.0 10^3/uL (1.5-6.6) L* 07/24/19 06:15 Lymphocytes # (Manual) 0.5 10^3/uL (1.5-3.5) L 07/24/19 06:15 Monocytes # (Manual) 0.1 10^3/uL (0.0-1.0) 07/24/19 06:15 Eosinophils # (Manual) 0.0 10^3/uL (0-0.7) 07/24/19 06:15 Basophils # (Manual) 0.0 10^3/uL (0-0.1) 07/24/19 06:15 Differential Comment MANUAL DIFFERENTIAL 07/24/19 06:15 Manual Slide Review Indicated 07/23/19 18:40 WBC Morphology NORMAL APPEARANCE (NORMAL) 07/24/19 06:15 Platelet Estimate NORMAL (130-450,000) (NORMAL) 07/24/19 06:15 Platelet Morphology NORMAL APPEARANCE (NORMAL) 07/24/19 06:15 RBC Morph Micro Appear NORMAL APPEARANCE (NORMAL) 07/24/19 06:15 Sodium 140 mmol/L (135-145) 07/24/19 06:15 Potassium 4.2 mmol/L (3.5-5.0) 07/24/19 06:15 Chloride 108 mmol/L (101-111) 07/24/19 06:15 Carbon Dioxide 26 mmol/L (21-32) 07/24/19 06:15 Anion Gap 6.0 (6-13) 07/24/19 06:15 BUN 14 mg/dL (6-20) 07/24/19 06:15 Creatinine 1.1 mg/dL (0.6-1.2) 07/24/19 06:15 Estimated GFR (MDRD) 65 (>89) L 07/24/19 06:15 Glucose 106 mg/dL (70-100) H 07/24/19 06:15 POC Whole Bld Glucose 119 mg/dL (70 - 100) H 07/24/19 11:29 Glycated Hemoglobin 6.8 % (4.6-6.2) H 07/24/19 06:15 Estim Average Glucose 148 (70-100) H 07/24/19 06:15 Lactic Acid 0.9 mmol/L (0.5-2.2) 07/23/19 18:40 Calcium 7.9 mg/dL (8.5-10.3) L 07/24/19 06:15 Magnesium 2.5 mg/dL (1.7-2.8) 07/23/19 18:40 Total Bilirubin 0.6 mg/dL (0.2-1.0) 07/23/19 18:40 AST 25 IU/L (10-42) 07/23/19 18:40 ALT 49 IU/L (10-60) 07/23/19 18:40 Alkaline Phosphatase 74 IU/L (42-121) 07/23/19 18:40 Total Protein 6.6 g/dL (6.7-8.2) L 07/23/19 18:40 Albumin 3.6 g/dL (3.2-5.5) 07/23/19 18:40 Globulin 3.0 g/dL (2.1-4.2) 07/23/19 18:40 Albumin/Globulin Ratio 1.2 (1.0-2.2) 07/23/19 18:40 Lipase 21 U/L (22-51) L 07/23/19 18:40 Urine Color YELLOW 07/23/19 19:43 Urine Clarity CLEAR (CLEAR) 07/23/19 19:43 Urine pH 6.0 PH (5.0-7.5) 07/23/19 19:43 Ur Specific [place] 1.010 (1.002-1.030) 07/23/19 19:43 Urine Protein TRACE mg/dL (NEGATIVE) 07/23/19 19:43 Urine Glucose (UA) NEGATIVE mg/dL (NEGATIVE) 07/23/19 19:43 Urine Ketones NEGATIVE mg/dL (NEGATIVE) 07/23/19 19:43 Urine Occult Blood NEGATIVE (NEGATIVE) 07/23/19 19:43 Urine Nitrite NEGATIVE (NEGATIVE) 07/23/19 19:43 Urine Bilirubin NEGATIVE (NEGATIVE) 07/23/19 19:43 Urine Urobilinogen 0.2 (NORMAL) E.U./dL (NORMAL) 07/23/19 19:43 Ur Leukocyte Esterase NEGATIVE (NEGATIVE) 07/23/19 19:43 Ur Microscopic Review NOT INDICATED 07/23/19 19:43 Urine Culture Comments NOT INDICATED 07/23/19 19:43 Nasal Screen MRSA (PCR) NEGATIVE (NEGATIVE) 07/24/19 04:40 Influenza A (Rapid) Negative (Negative) 07/23/19 19:49 Influenza B (Rapid) Negative (Negative) 07/23/19 19:49
[2019-07-24] MEDS: PROCHLORPERAZINE 10 MG/2 ML VIAL IVP PRN (13:40)
[2019-07-24 20:38] LABS: BILIRUBIN,URINE NEGATIVE (NEGATIVE); GLUCOSE, URINE (UA) NEGATIVE (NEGATIVE); KETONES,URINE (UA) NEGATIVE (NEGATIVE); LEUKOCYTE ESTERASE, URINE NEGATIVE (NEGATIVE); NITRITE,URINE NEGATIVE (NEGATIVE); OCCULT BLOOD,URINE NEGATIVE (NEGATIVE); PROTEIN,URINE NEGATIVE (NEGATIVE); UROBILINOGEN,URINE 0.2 (NORMAL) E.U./dL (NORMAL)
[2019-07-24 20:46] LABS: BACTERIA,URINE None Seen /HPF (None Seen); CLARITY,URINE CLEAR (CLEAR); RBC,URINE None Seen /HPF (0-5); SQUAMOUS EPITHELIAL CELL,UR NONE SEEN (<= Few)
[2019-07-24] MEDS: guaiFENesin 600 MG TABLET PO SCH (21:18)
[2019-07-24] MEDS: AZITHROMYCIN 250 MG TABLET PO SCH (21:18)
[2019-07-24] MEDS: ATORVASTATIN 40 MG TABLET PO SCH (21:19)
[2019-07-24] MEDS: oxyCODONE 5 MG TABLET PO PRN (21:55)
[2019-07-25] MEDS: oxyCODONE 5 MG TABLET PO PRN (02:17)
[2019-07-25] MEDS: SODIUM CHLORIDE FLUSH 0.9% 10 ML SYRINGE IVP SCH ×3 (02:18→17:58)
[2019-07-25] MEDS: CEFEPIME 2 GM in SODIUM CHLORIDE 0.9% MINIBAG 100 ML IV SCH ×3 (05:12→21:46)
[2019-07-25] MEDS: SODIUM CHLORIDE FLUSH 0.9% 10 ML SYRINGE IVP PRN ×3 (05:30→10:38)
[2019-07-25 06:18] LABS: BASOPHILS % (AUTO) 2.3 %; EOSINOPHILS % (AUTO) 0.5 %; HGB - HEMOGLOBIN 11.4 g/dL (14.0-18.0); MEAN CORPUSCULAR HEMOGLOBIN 32.4 pg (27.0-31.0); MEAN CORPUSCULAR HGB CONC 33.6 g/dL (32.0-36.0); MEAN CORPUSCULAR VOLUME 96.3 fL (80.0-94.0); MEAN PLATELET VOLUME 10.3 fL (7.4-11.4); MONOCYTES % (AUTO) 22.3 %; NEUTROPHILS % (AUTO) 20.8 %; PLT - PLATELET COUNT 134 10^3/uL (130-450); RED BLOOD COUNT 3.52 10^6/uL (4.70-6.10); RED CELL DISTRIBUTION WIDTH 12.3 % (12.0-15.0); WHITE BLOOD COUNT 2.2 x10^3/uL (4.8-10.8)
[2019-07-25 06:21] LABS: CALCIUM 8.3 mg/dL (8.5-10.3); CREATININE 1.1 mg/dL (0.6-1.2)
[2019-07-25 06:22] LABS: ABNORMAL LYMPHS % (MANUAL) 0 %
[2019-07-25] MEDS: PANTOPRAZOLE 40 MG VIAL IVP SCH (06:45)
[2019-07-25 07:10] LABS: BAND NEUTROPHILS % (MANUAL) 4 %; BASOPHILS # (MANUAL) 0.1 10^3/uL (0-0.1); BASOPHILS % (MANUAL) 5 %; LYMPHOCYTES # (MANUAL) 1.1 10^3/uL (1.5-3.5); LYMPHOCYTES % (MANUAL) 50 %; MONOCYTES # (MANUAL) 0.3 10^3/uL (0.0-1.0)
[2019-07-25 07:12] LABS: METAMYELOCYTES % (MANUAL) 3 %; MYELOCYTES % (MANUAL) 6 %
[2019-07-25 07:16] LABS: DIFFERENTIAL COMMENT MANUAL DIFFERENTIAL; PLATELET ESTIMATE, MANUAL NORMAL (130-450,000) (NORMAL); PLATELET MORPHOLOGY NORMAL APPEARANCE (NORMAL); RBC MORPHOLOGY (MULTIPLE) NORMAL APPEARANCE (NORMAL)
[2019-07-25] MEDS: INSULIN ASPART 300 UNIT/3 ML PEN SUBQ SCH ×4 (08:21→21:46)
[2019-07-25] MEDS: amLODIPine 5 MG TABLET PO SCH (08:23)
[2019-07-25] MEDS: guaiFENesin 600 MG TABLET PO SCH ×2 (08:23→21:46)
[2019-07-25] MEDS: ASPIRIN CHEW 81 MG TABLET PO SCH (08:23)
[2019-07-25] MEDS: TAMSULOSIN 0.4 MG CAPSULE PO SCH (08:23)
[2019-07-25] MEDS: SODIUM CHLORIDE 0.9% 1,000 ML IV SCH ×2 (08:23→19:52)
[2019-07-25] MEDS: CHOLECALCIFEROL 1,000 UNIT TABLET PO SCH (08:23)
[2019-07-25] MEDS: FILGRASTIM-SNDZ 480 MCG/0.8 ML SYRINGE SUBQ SCH (08:30)
[2019-07-25] MEDS: AZITHROMYCIN 250 MG TABLET PO SCH (08:30)
--- NOTE | 2019-07-25 15:45 | PROVIDER PROGRESS NOTE ---
Assessment/Plan - Problem List (1) Chemotherapy induced neutropenia Assessment/Plan: Still low ANC No DCh til ANC>1500 (2) Chemotherapy-induced nausea and vomiting Assessment/Plan: N/V better on easier to digest diet Continue present plan and meds (3) Acute pneumonia Assessment/Plan: Continue iv antibiotics Blood cx neg to date. He made no sputum for cx (4) Bladder cancer Qualifiers: Bladder location: unspecified site Qualified Code(s): C67.9 - Malignant neoplasm of bladder, unspecified Assessment/Plan: Chemo planned for 6 sessions evry other week, for a wek at a time (5) DM type 2 (diabetes mellitus, type 2) Assessment/Plan: Continue cc diet, ss Insulin coverage (6) Hypertension Assessment/Plan: Resuming home meds as he is feeling better and BP rising (7) Hyperlipidemia Assessment/Plan: Simvastatin on hold while he is nauseated - Current Meds Current Meds: Current Medications Generic Name Dose Route Start Last Admin Trade Name Freq PRN Reason Stop Dose Admin Acetaminophen 650 mg 07/23/19 21:56 07/25/19 05:10 Tylenol PO 650 mg Q4HR PRN Administration Pain 1 to 4 Amlodipine Besylate 5 mg 07/25/19 09:00 07/25/19 08:23 Norvasc PO 5 mg DAILY QUINTEN Administration Aspirin 81 mg 07/25/19 09:00 07/25/19 08:23 St Lan Aspirin PO 81 mg DAILY QUINTEN Administration Atorvastatin Calcium 20 mg 07/24/19 21:00 07/24/19 21:19 Lipitor PO 20 mg QPM QUINTEN Administration Azithromycin 250 mg 07/24/19 21:00 07/25/19 08:30 Zithromax PO 07/27/19 09:01 250 mg DAILY QUINTEN Administration Cholecalciferol 1,000 unit 07/25/19 09:00 07/25/19 08:23 Vitamin D3 PO 1,000 unit DAILY QUINTEN Administration Filgrastim 480 mcg 07/24/19 09:00 07/25/19 08:30 Zarxio SUBQ 480 mcg DAILY QUINTEN Administration Guaifenesin 600 mg 07/24/19 21:00 07/25/19 08:23 Mucinex PO 600 mg BID QUINTEN Administration Sodium Chloride 1,000 mls @ 100 mls/hr 07/23/19 22:00 07/25/19 08:23 Normal Saline 0.9% IV 100 mls/hr .Q10H QUINTEN Administration Cefepime HCl 2 gm/ Sodium 100 mls @ 200 mls/hr 07/24/19 05:00 07/25/19 13:32 Chloride IV Infused Q8H QUINTEN Infusion Insulin Aspart 1 - 5 unit 07/24/19 08:00 07/25/19 11:38 Novolog SUBQ Not Given 0800,1200,1700,2100 [facility] Protocol Ondansetron HCl 4 mg 07/23/19 21:56 07/24/19 08:30 Zofran Inj IVP 4 mg Q6HR PRN Administration Nausea / Vomiting Oxycodone HCl 5 mg 07/24/19 21:09 07/25/19 02:17 Roxicodone PO 5 mg Q4HR PRN Administration PAIN Pantoprazole Sodium 40 mg 07/24/19 07:00 07/25/19 06:45 Protonix IVP 40 mg QDAC QUINTEN Administration Prochlorperazine Edisylate 10 mg 07/24/19 12:48 07/24/19 13:40 Compazine Inj IVP 10 mg Q4HR PRN Administration Nausea / Vomiting Sodium Chloride 10 ml 07/23/19 21:56 07/25/19 10:38 Normal Saline Flush 0.9% IVP 10 ml PRN PRN Administration NEEDED PER PROVIDER ORDERS Sodium Chloride 10 ml 07/24/19 01:00 07/25/19 08:30 Normal Saline Flush 0.9% IVP Not Given 0100,0900,1700 QUINTEN Sodium Chloride 20 ml 07/24/19 04:45 07/25/19 05:30 Normal Saline Flush 0.9% IVP 20 ml PRN PRN Administration After Blood Draw Tamsulosin HCl 0.4 mg 07/25/19 09:00 07/25/19 08:23 Flomax PO 0.4 mg DAILY QUINTEN Administration Throat Lozenges 1 lozenge 07/24/19 04:45 07/24/19 21:18 Cepacol MM 1 lozenge Q2HR PRN Administration Throat pain - Lab Result Fish Bone Diagrams: 07/27/19 06:12 07/27/19 06:12 - Additional Planning My Orders: My Active Orders 07/24/19 21:00 Atorvastatin [Lipitor] 20 mg PO QPM guaiFENesin [Mucinex] 600 mg PO BID 07/24/19 Dinner DIET [Full Liquid Diet] [DIET] 07/25/19 Social Work Consult [CONS] Routine 07/25/19 09:00 Aspirin Chewable [St Lan Aspirin] 81 mg PO DAILY Cholecalciferol [Vitamin D3] 1,000 unit PO DAILY Tamsulosin [Flomax] 0.4 mg PO DAILY amLODIPine [Norvasc] 5 mg PO DAILY Subjective - Subjective Patient Reports: Feeling Better, Nausea (Less nauseated and wants the diet to remain easily digestable, not advancd to Regular) Nursing Reports: Other (The patient wants SW help to move out of his daughter's house where he feels it is unhealthy for a patient with neutropenia.) Objective Vital Signs: Vital Signs - 24 hr 07/24/19 07/24/19 07/24/19 16:51 20:50 23:50 Temperature 37.4 C 37.4 C 37.6 C H Heart Rate [ 94 84 89 Brachial] Respiratory 20 18 16 Rate Blood Pressure 155/78 H 165/80 H [Left] Blood Pressure 157/83 H [Right Brachial artery] O2 Saturation 95 94 93 07/25/19 07/25/19 07/25/19 02:16 03:10 07:32 Temperature 37.3 C 37.2 C 37 C Heart Rate [ 88 86 Brachial] Respiratory 16 16 Rate Blood Pressure [Left] Blood Pressure 151/82 H 158/88 H [Right Brachial artery] O2 Saturation 93 97 07/25/19 12:26 Temperature 37 C Heart Rate [ 108 H Brachial] Respiratory 16 Rate Blood Pressure [Left] Blood Pressure 144/77 H [Right Brachial artery] O2 Saturation 97 Oxygen O2 Source Room air I&O (Last 24 Hrs): Intake and Output Totals x24h 07/23/19 07/24/19 07/25/19 23:59 23:59 23:59 Intake Total 1350 2876.667 1921.667 Output Total 525 600 Balance 1350 2351.667 1321.667 General: Alert, Oriented x3 HEENT: Mucous membr. moist/pink Neck: Supple Cardiovascular: Regular rate, No murmurs Respiratory: No respiratory distress, Breath sounds nml Abdomen: Soft Extremities: No edema - Results Results: Laboratory Results WBC 2.2 x10^3/uL (4.8-10.8) L 07/25/19 05:20 RBC 3.52 10^6/uL (4.70-6.10) L 07/25/19 05:20 Hgb 11.4 g/dL (14.0-18.0) L 07/25/19 05:20 Hct 33.9 % (42.0-52.0) L 07/25/19 05:20 MCV 96.3 fL (80.0-94.0) H 07/25/19 05:20 MCH 32.4 pg (27.0-31.0) H 07/25/19 05:20 MCHC 33.6 g/dL (32.0-36.0) 07/25/19 05:20 RDW 12.3 % (12.0-15.0) 07/25/19 05:20 Plt Count 134 10^3/uL (130-450) 07/25/19 05:20 MPV 10.3 fL (7.4-11.4) 07/25/19 05:20 Neut # (Auto) Not Reportable 07/25/19 05:20 Lymph # (Auto) Not Reportable 07/25/19 05:20 [place] # (Auto) Not Reportable 07/25/19 05:20 Eos # (Auto) Not Reportable 07/25/19 05:20 Baso # (Auto) Not Reportable 07/25/19 05:20 Absolute Nucleated RBC Not Reportable 07/25/19 05:20 Total Counted 100 07/25/19 05:20 Band Neuts % (Manual) 4 % (0-10) 07/25/19 05:20 Reactive Lymphs % (Man) 2 % 07/23/19 18:40 Abnorm Lymph % (Manual) 0 % 07/25/19 05:20 Metamyelocytes % 3 % (-0) H 07/25/19 05:20 Myelocytes % 6 % (-0) H 07/25/19 05:20 Blast Cells % 8 % H* 07/25/19 05:20 Nucleated RBC % Not Reportable 07/25/19 05:20 Neutrophils # (Manual) 0.3 10^3/uL (1.5-6.6) L* 07/25/19 05:20 Lymphocytes # (Manual) 1.1 10^3/uL (1.5-3.5) L 07/25/19 05:20 Monocytes # (Manual) 0.3 10^3/uL (0.0-1.0) 07/25/19 05:20 Eosinophils # (Manual) 0.0 10^3/uL (0-0.7) 07/25/19 05:20 Basophils # (Manual) 0.1 10^3/uL (0-0.1) 07/25/19 05:20 Differential Comment MANUAL DIFFERENTIAL 07/25/19 05:20 Manual Slide Review Indicated 07/23/19 18:40 WBC Morphology NORMAL APPEARANCE (NORMAL) 07/25/19 05:20 Platelet Estimate NORMAL (130-450,000) (NORMAL) 07/25/19 05:20 Platelet Morphology NORMAL APPEARANCE (NORMAL) 07/25/19 05:20 RBC Morph Micro Appear NORMAL APPEARANCE (NORMAL) 07/25/19 05:20 Sodium 136 mmol/L (135-145) 07/25/19 05:20 Potassium 4.0 mmol/L (3.5-5.0) 07/25/19 05:20 Chloride 103 mmol/L (101-111) 07/25/19 05:20 Carbon Dioxide 26 mmol/L (21-32) 07/25/19 05:20 Anion Gap 7.0 (6-13) 07/25/19 05:20 BUN 10 mg/dL (6-20) 07/25/19 05:20 Creatinine 1.1 mg/dL (0.6-1.2) 07/25/19 05:20 Estimated GFR (MDRD) 65 (>89) L 07/25/19 05:20 Glucose 97 mg/dL (70-100) 07/25/19 05:20 POC Whole Bld Glucose 79 mg/dL (70 - 100) 07/25/19 11:28 Glycated Hemoglobin 6.8 % (4.6-6.2) H 07/24/19 06:15 Estim Average Glucose 148 (70-100) H 07/24/19 06:15 Lactic Acid 0.9 mmol/L (0.5-2.2) 07/23/19 18:40 Calcium 8.3 mg/dL (8.5-10.3) L 07/25/19 05:20 Magnesium 2.5 mg/dL (1.7-2.8) 07/23/19 18:40 Total Bilirubin 0.6 mg/dL (0.2-1.0) 07/23/19 18:40 AST 25 IU/L (10-42) 07/23/19 18:40 ALT 49 IU/L (10-60) 07/23/19 18:40 Alkaline Phosphatase 74 IU/L (42-121) 07/23/19 18:40 Total Protein 6.6 g/dL (6.7-8.2) L 07/23/19 18:40 Albumin 3.6 g/dL (3.2-5.5) 07/23/19 18:40 Globulin 3.0 g/dL (2.1-4.2) 07/23/19 18:40 Albumin/Globulin Ratio 1.2 (1.0-2.2) 07/23/19 18:40 Lipase 21 U/L (22-51) L 07/23/19 18:40 Urine Color YELLOW 07/24/19 16:20 Urine Clarity CLEAR (CLEAR) 07/24/19 16:20 Urine pH 6.0 PH (5.0-7.5) 07/24/19 16:20 Ur Specific [place] <=1.005 (1.002-1.030) 07/24/19 16:20 Urine Protein NEGATIVE mg/dL (NEGATIVE) 07/24/19 16:20 Urine Glucose (UA) NEGATIVE mg/dL (NEGATIVE) 07/24/19 16:20 Urine Ketones NEGATIVE mg/dL (NEGATIVE) 07/24/19 16:20 Urine Occult Blood NEGATIVE (NEGATIVE) 07/24/19 16:20 Urine Nitrite NEGATIVE (NEGATIVE) 07/24/19 16:20 Urine Bilirubin NEGATIVE (NEGATIVE) 07/24/19 16:20 Urine Urobilinogen 0.2 (NORMAL) E.U./dL (NORMAL) 07/24/19 16:20 Ur Leukocyte Esterase NEGATIVE (NEGATIVE) 07/24/19 16:20 Urine RBC None Seen /HPF (0-5) 07/24/19 16:20 Urine WBC 0-3 /HPF (0-3) 07/24/19 16:20 Ur Squamous Epith Cells NONE SEEN (<= Few) 07/24/19 16:20 Urine Bacteria None Seen /HPF (None Seen) 11/09/19 16:20 Ur Microscopic Review NOT INDICATED 07/23/19 19:43 Urine Culture Comments NOT INDICATED 07/24/19 16:20 Nasal Screen MRSA (PCR) NEGATIVE (NEGATIVE) 07/24/19 04:40 Influenza A (Rapid) Negative (Negative) 07/23/19 19:49 Influenza B (Rapid) Negative (Negative) 07/23/19 19:49
[2019-07-25] MEDS: IBUPROFEN 600 MG TABLET PO SCH (17:56)
[2019-07-25] MEDS: ONDANSETRON 4 MG/2 ML VIAL IVP PRN (17:57)
[2019-07-25] MEDS: LORATADINE 10 MG TABLET PO SCH (17:57)
[2019-07-25] MEDS: FLUTICASONE NASAL SPRAY NAS SCH (17:57)
[2019-07-25] MEDS: ATORVASTATIN 40 MG TABLET PO SCH (21:45)
[2019-07-26] MEDS: IBUPROFEN 600 MG TABLET PO SCH ×5 (00:01→23:45)
[2019-07-26] MEDS: SODIUM CHLORIDE FLUSH 0.9% 10 ML SYRINGE IVP SCH ×3 (00:02→15:55)
[2019-07-26] MEDS: SODIUM CHLORIDE 0.9% 1,000 ML IV SCH ×3 (05:21→23:45)
[2019-07-26] MEDS: CEFEPIME 2 GM in SODIUM CHLORIDE 0.9% MINIBAG 100 ML IV SCH ×3 (05:23→20:40)
[2019-07-26] MEDS: SODIUM CHLORIDE FLUSH 0.9% 10 ML SYRINGE IVP PRN ×2 (05:25→05:57)
[2019-07-26] MEDS: PANTOPRAZOLE 40 MG VIAL IVP SCH (05:57)
[2019-07-26 06:02] LABS: BASOPHILS % (AUTO) 0.3 %; EOSINOPHILS % (AUTO) 0.1 %; HGB - HEMOGLOBIN 10.3 g/dL (14.0-18.0); LYMPHOCYTES # (AUTO) 1.1 10^3/uL (1.5-3.5); LYMPHOCYTES % (AUTO) 8.8 %; MEAN CORPUSCULAR HEMOGLOBIN 31.4 pg (27.0-31.0); MEAN CORPUSCULAR HGB CONC 32.8 g/dL (32.0-36.0); MEAN CORPUSCULAR VOLUME 95.7 fL (80.0-94.0); MEAN PLATELET VOLUME 10.7 fL (7.4-11.4); MONOCYTES # (AUTO) 1.5 10^3/uL (0.0-1.0); MONOCYTES % (AUTO) 12.2 %; NEUTROPHILS # (AUTO) 8.5 10^3/uL (1.5-6.6); NEUTROPHILS % (AUTO) 67.6 %; PLT - PLATELET COUNT 115 10^3/uL (130-450); RED BLOOD COUNT 3.28 10^6/uL (4.70-6.10); RED CELL DISTRIBUTION WIDTH 12.8 % (12.0-15.0); WHITE BLOOD COUNT 12.6 x10^3/uL (4.8-10.8)
[2019-07-26 06:07] LABS: CALCIUM 7.9 mg/dL (8.5-10.3); CREATININE 0.9 mg/dL (0.6-1.2)
[2019-07-26] MEDS: FLUTICASONE NASAL SPRAY NAS SCH (08:28)
[2019-07-26] MEDS: amLODIPine 5 MG TABLET PO SCH (08:29)
[2019-07-26] MEDS: INSULIN ASPART 300 UNIT/3 ML PEN SUBQ SCH ×4 (08:29→20:40)
[2019-07-26] MEDS: TAMSULOSIN 0.4 MG CAPSULE PO SCH (08:29)
[2019-07-26] MEDS: LORATADINE 10 MG TABLET PO SCH (08:30)
[2019-07-26] MEDS: guaiFENesin 600 MG TABLET PO SCH ×2 (08:30→20:38)
[2019-07-26] MEDS: AZITHROMYCIN 250 MG TABLET PO SCH (08:30)
[2019-07-26] MEDS: ASPIRIN CHEW 81 MG TABLET PO SCH (08:30)
[2019-07-26] MEDS: CHOLECALCIFEROL 1,000 UNIT TABLET PO SCH (08:30)
[2019-07-26] MEDS ORDERED: FLUTICASONE NASAL SPRAY NAS SCH (09:00)
[2019-07-26] MEDS ORDERED: LORATADINE 10 MG TABLET PO SCH (09:00)
[2019-07-26] MEDS: PROCHLORPERAZINE 10 MG/2 ML VIAL IVP PRN (11:00)
--- NOTE | 2019-07-26 13:33 | PROVIDER PROGRESS NOTE ---
Assessment/Plan - Problem List (1) Acute pneumonia Assessment/Plan: He is still coughing, but less. He had emesis of dinner last night. Will order a Speech Therapy fluoro swallowing eval, to determine if he aspirates to cause PNA. Continue antibiotics, and will plan to change to oral Augmentin. 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 Treating for GERD was advised: continue the antacid (Protonix made him feel much better he reported), 6 small meals instead of 3 large meals advised, and anti- reflux measures (HOB on 3" blocks). (3) Chemotherapy induced neutropenia Assessment/Plan: ANC has risen to acceptable. He wanted to make the announcement to move out of his daughter's house (for cleanliness in a neutropenic patient), made easier by our SW, who helped in a family discussion yesterday and today. (4) Bladder cancer Qualifiers: Bladder location: unspecified site Qualified Code(s): C67.9 - Malignant neoplasm of bladder, unspecified (5) DM type 2 (diabetes mellitus, type 2) Assessment/Plan: cc diet and ss Insulin (6) Hypertension Assessment/Plan: BP meds resumed (7) Hyperlipidemia Assessment/Plan: Simvistatin on hold while he was nauseated - Current Meds Current Meds: Current Medications Generic Name Dose Route Start Last Admin Trade Name Freq PRN Reason Stop Dose Admin Acetaminophen 650 mg 07/23/19 21:56 07/25/19 05:10 Tylenol PO 650 mg Q4HR PRN Administration Pain 1 to 4 Amlodipine Besylate 5 mg 07/25/19 09:00 07/26/19 08:29 Norvasc PO 5 mg DAILY QUINTEN Administration Aspirin 81 mg 07/25/19 09:00 07/26/19 08:30 St Lan Aspirin PO 81 mg DAILY QUINTEN Administration Atorvastatin Calcium 20 mg 07/24/19 21:00 07/25/19 21:45 Lipitor PO 20 mg QPM QUINTEN Administration Azithromycin 250 mg 07/24/19 21:00 07/26/19 08:30 Zithromax PO 07/27/19 09:01 250 mg DAILY QUINTEN Administration Cholecalciferol 1,000 unit 07/25/19 09:00 07/26/19 08:30 Vitamin D3 PO 1,000 unit DAILY QUINTEN Administration Fluticasone Propionate 2 sprays 07/25/19 16:56 07/26/19 08:28 Flonase RAZIA 2 sprays DAILY QUINTEN Administration Guaifenesin 600 mg 07/24/19 21:00 07/26/19 08:30 Mucinex PO 600 mg BID QUINTEN Administration Sodium Chloride 1,000 mls @ 100 mls/hr 07/23/19 22:00 07/26/19 10:50 Normal Saline 0.9% IV 100 mls/hr .Q10H QUINTEN Administration Cefepime HCl 2 gm/ Sodium 100 mls @ 200 mls/hr 07/24/19 05:00 07/26/19 12:48 Chloride IV 200 mls/hr Q8H QUINTEN Administration Ibuprofen 600 mg 07/25/19 18:00 07/26/19 11:45 Motrin PO Not Given Q6HR [facility] Insulin Aspart 1 - 5 unit 07/24/19 08:00 07/26/19 11:45 Novolog SUBQ Not Given 0800,1200,1700,2100 [facility] Protocol Loratadine 10 mg 07/25/19 16:55 07/26/19 08:30 Claritin PO 10 mg DAILY QUINTEN Administration Ondansetron HCl 4 mg 07/23/19 21:56 07/25/19 17:57 Zofran Inj IVP 4 mg Q6HR PRN Administration Nausea / Vomiting Oxycodone HCl 5 mg 07/24/19 21:09 07/25/19 02:17 Roxicodone PO 5 mg Q4HR PRN Administration PAIN Pantoprazole Sodium 40 mg 07/24/19 07:00 07/26/19 05:57 Protonix IVP 40 mg QDAC QUINTEN Administration Prochlorperazine Edisylate 10 mg 07/24/19 12:48 07/26/19 11:00 Compazine Inj IVP 10 mg Q4HR PRN Administration Nausea / Vomiting Sodium Chloride 10 ml 07/23/19 21:56 07/26/19 05:57 Normal Saline Flush 0.9% IVP 10 ml PRN PRN Administration NEEDED PER PROVIDER ORDERS Sodium Chloride 10 ml 07/24/19 01:00 07/26/19 08:31 Normal Saline Flush 0.9% IVP Not Given 0100,0900,1700 QUINTEN Sodium Chloride 20 ml 07/24/19 04:45 07/26/19 05:25 Normal Saline Flush 0.9% IVP 20 ml PRN PRN Administration After Blood Draw Tamsulosin HCl 0.4 mg 07/25/19 09:00 07/26/19 08:29 Flomax PO 0.4 mg DAILY QUINTEN Administration Throat Lozenges 1 lozenge 07/24/19 04:45 07/24/19 21:18 Cepacol MM 1 lozenge Q2HR PRN Administration Throat pain - Lab Result Fish Bone Diagrams: 07/27/19 06:12 07/27/19 06:12 - Additional Planning My Orders: My Active Orders 07/25/19 16:55 Loratadine [Claritin] 10 mg PO DAILY 07/25/19 16:56 Fluticasone [Flonase] 2 sprays RAZIA DAILY 07/25/19 18:00 Ibuprofen [Motrin] 600 mg PO Q6HR 07/26/19 09:11 Modified Barium Swallow W/SP [FL] Routine 07/26/19 13:29 Nutrition Consult [CONS] Routine Subjective - Subjective Patient Reports: Feeling Better, Other ("This is the best my stomach has felt in a long time") Objective Vital Signs: Vital Signs - 24 hr 07/25/19 07/25/19 07/25/19 16:43 18:44 21:00 Temperature 38.0 C H 37.4 C Heart Rate [ 104 H 102 H 90 Brachial] Respiratory 20 18 Rate Blood Pressure 151/78 H 144/71 H [Left] Blood Pressure [Right Brachial artery] O2 Saturation 92 93 07/26/19 07/26/19 07/26/19 00:06 05:30 07:35 Temperature 36.9 C 37.3 C 36.9 C Heart Rate [ 88 99 86 Brachial] Respiratory 18 18 18 Rate Blood Pressure 150/76 H 150/73 H [Left] Blood Pressure 137/72 H [Right Brachial artery] O2 Saturation 95 92 94 07/26/19 11:25 Temperature 36.9 C Heart Rate [ 97 Brachial] Respiratory 16 Rate Blood Pressure [Left] Blood Pressure 137/80 H [Right Brachial artery] O2 Saturation 93 Oxygen O2 Source Room air I&O (Last 24 Hrs): Intake and Output Totals x24h 07/24/19 07/25/19 07/26/19 23:59 23:59 23:59 Intake Total 2876.667 3261.667 3288.333 Output Total 525 600 Balance 2351.667 2661.667 3288.333 General: Alert, Oriented x3 HEENT: Mucous membr. moist/pink Neck: Supple Neuro: Non Focal Cardiovascular: Regular rate Respiratory: No respiratory distress Abdomen: Soft Extremities: No edema - Results Results: Laboratory Results WBC 12.6 x10^3/uL (4.8-10.8) H 07/26/19 05:15 RBC 3.28 10^6/uL (4.70-6.10) L 07/26/19 05:15 Hgb 10.3 g/dL (14.0-18.0) L 07/26/19 05:15 Hct 31.4 % (42.0-52.0) L 07/26/19 05:15 MCV 95.7 fL (80.0-94.0) H 07/26/19 05:15 MCH 31.4 pg (27.0-31.0) H 07/26/19 05:15 MCHC 32.8 g/dL (32.0-36.0) 07/26/19 05:15 RDW 12.8 % (12.0-15.0) 07/26/19 05:15 Plt Count 115 10^3/uL (130-450) L 07/26/19 05:15 MPV 10.7 fL (7.4-11.4) 07/26/19 05:15 Neut # (Auto) 8.5 10^3/uL (1.5-6.6) H 07/26/19 05:15 Lymph # (Auto) 1.1 10^3/uL (1.5-3.5) L 07/26/19 05:15 Wilkinson # (Auto) 1.5 10^3/uL (0.0-1.0) H 07/26/19 05:15 Eos # (Auto) 0.0 10^3/uL (0.0-0.7) 07/26/19 05:15 Baso # (Auto) 0.0 10^3/uL (0.0-0.1) 07/26/19 05:15 Absolute Nucleated RBC 0.05 x10^3/uL 07/26/19 05:15 Total Counted 100 07/25/19 05:20 Band Neuts % (Manual) 4 % (0-10) 07/25/19 05:20 Reactive Lymphs % (Man) 2 % 07/23/19 18:40 Abnorm Lymph % (Manual) 0 % 07/25/19 05:20 Metamyelocytes % 3 % (-0) H 07/25/19 05:20 Myelocytes % 6 % (-0) H 07/25/19 05:20 Blast Cells % 8 % H* 07/25/19 05:20 Nucleated RBC % 0.4 /100WBC 07/26/19 05:15 Neutrophils # (Manual) 0.3 10^3/uL (1.5-6.6) L* 07/25/19 05:20 Lymphocytes # (Manual) 1.1 10^3/uL (1.5-3.5) L 07/25/19 05:20 Monocytes # (Manual) 0.3 10^3/uL (0.0-1.0) 07/25/19 05:20 Eosinophils # (Manual) 0.0 10^3/uL (0-0.7) 07/25/19 05:20 Basophils # (Manual) 0.1 10^3/uL (0-0.1) 07/25/19 05:20 Differential Comment MANUAL DIFFERENTIAL 07/25/19 05:20 Manual Slide Review Indicated 07/23/19 18:40 WBC Morphology NORMAL APPEARANCE (NORMAL) 07/25/19 05:20 Platelet Estimate NORMAL (130-450,000) (NORMAL) 07/25/19 05:20 Platelet Morphology NORMAL APPEARANCE (NORMAL) 07/25/19 05:20 RBC Morph Micro Appear NORMAL APPEARANCE (NORMAL) 07/25/19 05:20 Sodium 139 mmol/L (135-145) 07/26/19 05:15 Potassium 3.5 mmol/L (3.5-5.0) 07/26/19 05:15 Chloride 108 mmol/L (101-111) 07/26/19 05:15 Carbon Dioxide 24 mmol/L (21-32) 07/26/19 05:15 Anion Gap 7.0 (6-13) 07/26/19 05:15 BUN 12 mg/dL (6-20) 07/26/19 05:15 Creatinine 0.9 mg/dL (0.6-1.2) 07/26/19 05:15 Estimated GFR (MDRD) 82 (>89) L 07/26/19 05:15 Glucose 102 mg/dL (70-100) H 07/26/19 05:15 POC Whole Bld Glucose 94 mg/dL (70 - 100) 07/26/19 11:22 Glycated Hemoglobin 6.8 % (4.6-6.2) H 07/24/19 06:15 Estim Average Glucose 148 (70-100) H 07/24/19 06:15 Lactic Acid 0.9 mmol/L (0.5-2.2) 07/23/19 18:40 Calcium 7.9 mg/dL (8.5-10.3) L 07/26/19 05:15 Magnesium 2.5 mg/dL (1.7-2.8) 07/23/19 18:40 Total Bilirubin 0.6 mg/dL (0.2-1.0) 07/23/19 18:40 AST 25 IU/L (10-42) 07/23/19 18:40 ALT 49 IU/L (10-60) 07/23/19 18:40 Alkaline Phosphatase 74 IU/L (42-121) 07/23/19 18:40 Total Protein 6.6 g/dL (6.7-8.2) L 07/23/19 18:40 Albumin 3.6 g/dL (3.2-5.5) 07/23/19 18:40 Globulin 3.0 g/dL (2.1-4.2) 07/23/19 18:40 Albumin/Globulin Ratio 1.2 (1.0-2.2) 07/23/19 18:40 Lipase 21 U/L (22-51) L 07/23/19 18:40 Urine Color YELLOW 07/24/19 16:20 Urine Clarity CLEAR (CLEAR) 07/24/19 16:20 Urine pH 6.0 PH (5.0-7.5) 07/24/19 16:20 Ur Specific [place] <=1.005 (1.002-1.030) 07/24/19 16:20 Urine Protein NEGATIVE mg/dL (NEGATIVE) 07/24/19 16:20 Urine Glucose (UA) NEGATIVE mg/dL (NEGATIVE) 07/24/19 16:20 Urine Ketones NEGATIVE mg/dL (NEGATIVE) 07/24/19 16:20 Urine Occult Blood NEGATIVE (NEGATIVE) 07/24/19 16:20 Urine Nitrite NEGATIVE (NEGATIVE) 07/24/19 16:20 Urine Bilirubin NEGATIVE (NEGATIVE) 07/24/19 16:20 Urine Urobilinogen 0.2 (NORMAL) E.U./dL (NORMAL) 07/24/19 16:20 Ur Leukocyte Esterase NEGATIVE (NEGATIVE) 07/24/19 16:20 Urine RBC None Seen /HPF (0-5) 07/24/19 16:20 Urine WBC 0-3 /HPF (0-3) 07/24/19 16:20 Ur Squamous Epith Cells NONE SEEN (<= Few) 07/24/19 16:20 Urine Bacteria None Seen /HPF (None Seen) 07/24/19 16:20 Ur Microscopic Review NOT INDICATED 07/23/19 19:43 Urine Culture Comments NOT INDICATED 07/24/19 16:20 Nasal Screen MRSA (PCR) NEGATIVE (NEGATIVE) 07/24/19 04:40 Influenza A (Rapid) Negative (Negative) 07/23/19 19:49 Influenza B (Rapid) Negative (Negative) 07/23/19 19:49
[2019-07-26] MEDS: ONDANSETRON 4 MG/2 ML VIAL IVP PRN (14:55)
--- NOTE | 2019-07-26 17:01 | XRAY Report ---
Reason: vomiting, pneumonia, poss aspiration Procedure Date: 07/26/2019 Accession Number: [id number] / [id number] Procedure: FL - Modified Barium Swallow W/SP CPT Code: Final Report FULL RESULT: EXAM: MODIFIED BARIUM SWALLOW EXAM DATE: 07/26/2019 03:40 PM. CLINICAL HISTORY: Vomiting, pneumonia, possible aspiration. COMPARISON: None. TECHNIQUE: Under the direction of speech pathology, patient swallowed various consistencies of barium under lateral fluoroscopic observation of the neck. Fluoroscopy Time: 1.13. Number of Images: 89. FINDINGS: Swallowing Mechanism: Normal oral phase and swallowing reflex. Airway Protection: Normal epiglottic motion. No episodes of tracheal penetration or aspiration with all consistencies of barium. Pharynx: Normal. No significant vallecular or piriform sinus contrast pooling. Other: None. IMPRESSION: Normal modified barium swallow. No aspiration identified. RADIA
[2019-07-26] MEDS: oxyCODONE 5 MG TABLET PO PRN (20:38)
[2019-07-26] MEDS: ATORVASTATIN 40 MG TABLET PO SCH (20:39)
[2019-07-27] MEDS: SODIUM CHLORIDE FLUSH 0.9% 10 ML SYRINGE IVP SCH ×2 (01:53→06:08)
[2019-07-27] MEDS: CEFEPIME 2 GM in SODIUM CHLORIDE 0.9% MINIBAG 100 ML IV SCH (04:31)
[2019-07-27] MEDS: PANTOPRAZOLE 40 MG VIAL IVP SCH (06:08)
[2019-07-27] MEDS: SODIUM CHLORIDE FLUSH 0.9% 10 ML SYRINGE IVP PRN ×3 (06:08→10:29)
[2019-07-27] MEDS: IBUPROFEN 600 MG TABLET PO SCH (06:09)
[2019-07-27 06:29] LABS: BASOPHILS % (AUTO) 0.3 %; HGB - HEMOGLOBIN 9.9 g/dL (14.0-18.0); LYMPHOCYTES % (AUTO) 5.9 %; MEAN CORPUSCULAR HEMOGLOBIN 32.9 pg (27.0-31.0); MEAN CORPUSCULAR HGB CONC 33.8 g/dL (32.0-36.0); MEAN CORPUSCULAR VOLUME 97.3 fL (80.0-94.0); MEAN PLATELET VOLUME 10.5 fL (7.4-11.4); MONOCYTES % (AUTO) 8.7 %; PLT - PLATELET COUNT 106 10^3/uL (130-450); RED BLOOD COUNT 3.01 10^6/uL (4.70-6.10); RED CELL DISTRIBUTION WIDTH 13.3 % (12.0-15.0); WHITE BLOOD COUNT 21.3 x10^3/uL (4.8-10.8)
[2019-07-27 06:31] LABS: ABNORMAL LYMPHS % (MANUAL) 0 %
[2019-07-27 06:45] LABS: BAND NEUTROPHILS % (MANUAL) 4 %; LYMPHOCYTES # (MANUAL) 1.7 10^3/uL (1.5-3.5); LYMPHOCYTES % (MANUAL) 8 %; METAMYELOCYTES % (MANUAL) 2 %; MONOCYTES # (MANUAL) 1.9 10^3/uL (0.0-1.0); MYELOCYTES % (MANUAL) 5 %; RBC MORPHOLOGY (MULTIPLE) NORMAL APPEARANCE (NORMAL)
[2019-07-27 06:46] LABS: DIFFERENTIAL COMMENT MANUAL DIFFERENTIAL; PLATELET ESTIMATE, MANUAL DECREASED (<130,000) (NORMAL); PLATELET MORPHOLOGY NORMAL APPEARANCE (NORMAL)
[2019-07-27 07:44] VITALS: BP 147/78
[2019-07-27] MEDS: INSULIN ASPART 300 UNIT/3 ML PEN SUBQ SCH (08:05)
[2019-07-27] MEDS: CHOLECALCIFEROL 1,000 UNIT TABLET PO SCH (08:51)
[2019-07-27] MEDS: TAMSULOSIN 0.4 MG CAPSULE PO SCH (08:51)
[2019-07-27] MEDS: FLUTICASONE NASAL SPRAY NAS SCH (08:51)
[2019-07-27] MEDS: amLODIPine 5 MG TABLET PO SCH (08:52)
[2019-07-27] MEDS: ASPIRIN CHEW 81 MG TABLET PO SCH (08:52)
[2019-07-27] MEDS: guaiFENesin 600 MG TABLET PO SCH (08:52)
[2019-07-27] MEDS: LORATADINE 10 MG TABLET PO SCH (08:53)
[2019-07-27] MEDS: AZITHROMYCIN 250 MG TABLET PO SCH (08:53)
[2019-07-27] MEDS ORDERED: POTASSIUM CHLORIDE 20 MEQ TABLET PO ONE (08:55)
--- NOTE | 2019-07-27 08:59 | Discharge Plan ---
Discharge Plan Problem Reviewed?: Yes Disposition: Home, Self Care Condition: Stable Prescriptions: Amox/Clav 875/125 [Augmentin] 1 each PO Q12H 4 Days #7 tablet Pantoprazole [Protonix] 40 mg PO DAILY #30 tablet Diet: Regular (Mechanical soft diet As per recommendation of the speech language pathologist, 6 small meals daily (high calorie, high protein given your ongoing chemotherapy) recommended rather than 3 large meals given you have some esophageal reflux) Activity Restrictions: No Restrictions (As per recommendation of oncologist otherwise) Shower Restrictions: No Driving Restrictions: No Weight Bearing: Full Weight Plan of Treatment: 1) Neutropenic fever after chemotherapy with possible Early Right lung base pneumonia You came to the ED when you developed a fever with very low white blood cell count due to the chemotherapy The only possible source of fever on work up was a possible early Right lung base pneumonia (no flu. (Chest X ray had mild Right lung base airspace opacity) You started antibiotics for this Intravenous. You will go home with Augmentin 875 mg twice daily to be taken through the pm dose of 07/30(Friday; 7 days total antibiotics from admit) Your oncologist recommended that we start Filgastrim (helps boost your white blood cell count) until your white blood cell count was high enough We were able to stop the Filgrastim on 07/26 Keep your appointment for blood work on 07/29. 2) Gastroesophageal reflux A speech language pathologist did a modified Barium swallow to evaluate your swallow as you reported coughing during meals You did not report difficulty swallowing The study showed a normal oral and pharyngeal swallow but you did have some refluxing of contrast She recommended 6 small meals daily, and start a proton pump inhibitor (for reflux) Rx for prilosec written on discharge (starting with once daily) 3) Discontinuation of metformin Your glucoses have been very well controlled in the low 100's or lower off metformin You denied having diabetes and that a prior provider had started it for a different reason than diabetes In discussion you agreed with discontinuation of metformin Additional Instructions or Follow Up instructions: See above No Smoking: If you smoke, Please STOP! Call for help. Follow-up with: ALLAN LUTHER MD [Primary Care Provider] - 1 Week (patient has oncology follow up for blood work scheduled for 07/29 )
[2019-07-27] MEDS ORDERED: POLYETHYLENE GLYCOL 3350 17 GM PACKET PO SCH (09:00)
[2019-07-27] MEDS: SODIUM CHLORIDE 0.9% 1,000 ML IV SCH (10:29)
--- NOTE | 2019-07-27 11:56 | DISCHARGE SUMMARY ---
"Discharge Summary Admit Date: 07/23/19 Discharge Date: 07/27/19 Discharging Provider: Patito Laguna NP Primary Care Provider: Dr. Uriostegui Code Status: Attempt Resuscitation Condition at Discharge: Stable Discharge Disposition: 01 Home, Self Care - DIAGNOSES Admission Diagnoses: 1) Neutropenic Fever 2) Possible early pneumonia R lung base Discharge Diagnoses with Status of Each Condition: Neutropenic Fever Fever resolved Possible R lower lung early infiltrate Finishing course of Augmentin Neutropenia post chemotherapy Following Filgrastim; WBC 21K on discharge with ANC over 16K Diabetes Patient denies diabetes Has been on metformin, A1C 6.8 Glucoses in hospital have been mid 90's to low 100's off metformin Given reduced appetite with chemotherapy; HOLDIng metformin on discharge Reevaluate need for metformin when oncologic treatment complete - HPI History of Present Illness: 73 y/o man with aggressive bladder cancer diagnosed 3 years ago presented to the ED 07/23 with complaint of cough which started day before presentation. He had presented to the ED on 07/11/19 with similar complaint. He received chemotherapy on 07/02/19 and again last week (Patient reports regimen includes cisplatin and possibly vincristine (? patient unsure). Found to be febrile with temp 100.5. Hemodynamically stable with no hypotension. Mildly elevated HR 90- 100. No hypoxia. Lactate not elevated. Chemistris unremarkable. Found to be neutropenic with WBC of 0.8 and a neutrophil count of 0.0. Chest xray was concerning for possible infiltrates (vs atelectasis) but given neutropenia was treated as possible early pneumonia. UA negative, Infusaport site without signs or symptoms of infection. Admitting provider discussed with oncall oncologist Dr. Bill [phone] w ho recommended Filgrastim 480 mcg daily and could be discharged once ANC over 1500. - CONSULTS | PROCEDURES Consultations: none, informal consultation on phone with oncology at admission Procedures: Modified Barium swallow evaluation: Normal Swallow; normal oral phase and swallowing reflex .. Airway protection; normal epiglottic motion, NO episodes of tracheal penetration or aspiration with all barium consistencies. Normal pharynx. - HOSPITAL COURSE Hospital Course: 1) Neutropenic Fever WBC on admit 800 with ANC 0, No obvious source, but possible early infiltrate on CXR (see #2); treated as pneumonia Following Filgastrum as recommended by oncologist 21,300 on 07/27 with ANC 16K Completing course of Augmentin (was on IV cefepime, azitho inhouse) thru 08/29 pm dose (2) Acute pneumonia Possible early R lower lobe pneumonia on CXR: Received cefepime/azithro in hospital, no hypoxia will continue Augmentin 875 bid thru pm of 07/30 for possible early pneumonia consider recheck CXR ~ 4 wks 3) Gastroesophageal reflux; noted by SENIOR SALES DIRECTOR in evaluation if possible aspiration (none noted on modified barium) advised small frquent meals Started PPI ( Daughter wants to check with oncologist if ok to start PPI/ has Rx) (3) Bladder cancer: On chemotherapy. Patient has previously scheduled appointment for lab work with oncology this 07/29 ( 2 days post discharge) (4) Hypertension continues stable on lisinopril/ amlodipine no hypotension (5) Diabetes mellitus Conclusion/Plan: Patient denies hx of Diabetes A1C 6.8 Has been on metformin Glucoses here OFF metformin ~ 100 or less Stopping metformin on discharge after d/w patient while with reduced PO intake/ nausea related to chemo Reevaluate need for metformin once treatment for malignancy done (6) Hyperlipidemia continues home statin - ALLERGIES Allergies/Adverse Reactions: Allergies Allergy/AdvReac Type Severity Reaction Status Date / Time bacitracin AdvReac Rash Verified 07/23/19 17:50 [From Neosporin ([id number])] neomycin AdvReac Rash Verified 07/23/19 17:50 [From Neosporin ([id number])] polymyxin B AdvReac Rash Verified 07/23/19 17:50 [From Neosporin ([id number])] - MEDICATIONS Home Medications: Ambulatory Orders Medication Instructions Recorded Confirmed Aspirin 81 mg PO DAILY 07/11/19 07/24/19 Cholecalciferol (Vitamin D3) 1,000 unit PO DAILY 07/11/19 07/24/19 [Vitamin D3] Lisinopril 20 mg PO DAILY 07/11/19 07/24/19 Simvastatin 20 mg PO DAILY 07/11/19 07/24/19 Tamsulosin HCl [Flomax] 0.4 mg PO DAILY 07/11/19 07/24/19 amLODIPine [Norvasc] 5 mg PO DAILY 07/11/19 07/24/19 Fexofenadine HCl 180 mg PO DAILY 07/24/19 07/24/19 Fluticasone [Flonase] 2 sprays RAZIA DAILY 07/24/19 07/24/19 Ondansetron [Ondansetron Odt] 8 mg PO TID PRN 07/24/19 07/24/19 Prochlorperazine Maleate 10 mg PO Q6H PRN 07/24/19 07/24/19 Amox/Clav 875/125 [Augmentin] 1 each PO Q12H 4 Days #7 tablet 07/27/19 Pantoprazole [Protonix] 40 mg PO DAILY #30 tablet 07/27/19 - PHYSICAL EXAM AT DISCHARGE General Appearance: positive: No acute distress, Alert (animated in conversation, nontoxic) Eyes Bilateral: positive: Normal inspection Respiratory: positive: Chest non-tender, No respiratory distress, Breath sounds nml (No appreciable crackles, rhonchi, consolidation) Cardiovascular: positive: Regular rate & rhythm, No murmur, Other (Right upper chest infusaport site unremarkable, nontender) Abdomen: positive: Non-tender, Nml bowel sounds Skin: positive: Warm, Dry Extremities: positive: Other (Patient requested SCD removal during exam). negative: Pedal edema Neurologic/Psychiatric: positive: Oriented x3, Motor nml - LABS Result Diagrams: 07/27/19 06:12 07/27/19 06:12 Other Lab Results: WBC on admit 800 with ANC 50, Following Filgastrum WBC 2200 on 07/25 with ANC 300 07/26 WBC 12,600, 21,300 on 07/27 with ANC 16K - DIAGNOSTIC IMAGING Diagnostic Imaging Results: Final report reviewed Diagnostic Imaging Results Comments: Chest X ray 2 view; 07/23/19 Mild R lung base opacity, favor atelectasis per radiologist but could represent pneumonia/aspiration in proper clinical setting - QUALITY (Female Hip Fx Only) Was patient sent home on osteoporosis medication?: No"
== END 2019-07-27 11:26 | disposition home or self-care (01) | DRG 808 ==
LOC: ED 17:35 → MS2 21:56
PROVIDERS: ADMIT Internal Medicine; ATTEND Nurse Practitioner
DX: D70.1 Agranulocytosis secondary to cancer chemotherapy (principal); J18.1 Lobar pneumonia, unspecified organism; T45.1X5A Adverse effect of antineoplastic and immunosuppressive drugs, initial encounter; R50.81 Fever presenting with conditions classified elsewhere; R11.2 Nausea with vomiting, unspecified; C67.9 Malignant neoplasm of bladder, unspecified; K21.9 Gastro-esophageal reflux disease without esophagitis; E11.9 Type 2 diabetes mellitus without complications; I10 Essential (primary) hypertension; E78.5 Hyperlipidemia, unspecified; N40.0 Benign prostatic hyperplasia without lower urinary tract symptoms; Y92.009 Unspecified place in unspecified non-institutional (private) residence as the place of occurrence of the external cause; Z95.828 Presence of other vascular implants and grafts; Z79.84 Long term (current) use of oral hypoglycemic drugs; Z79.899 Other long term (current) drug therapy; Z79.82 Long term (current) use of aspirin; Z86.14 Personal history of Methicillin resistant Staphylococcus aureus infection
CPT/HCPCS: 36415; 71046; 74230; 80048; 80053; 81001; 81003; 83036; 83605; 83690; 83735; 85025; 87040; 87205; 87275; 87276; 87640; 92611; 94640; 96365; 99283; 99285; A9270; Q5101; 87070; 87086